=== PATIENT | male | born 2000 | race Caucasian/White ===

== ENCOUNTER 2020-05-20 15:26 | Outpatient (CLI) | payer OTHER, SELFPAY | END 2020-05-20 15:27 | disposition home or self-care (01) | PROVIDERS: PCP Pediatrics | DX: Z23 Encounter for immunization (principal) | CPT/HCPCS: 0001A; 91300 ==

== ENCOUNTER 2020-06-10 15:24 | Outpatient (CLI) | payer OTHER, SELFPAY | END 2020-06-10 15:25 | disposition home or self-care (01) | LOC: ANHCOVIDVC 15:25 | PROVIDERS: PCP Pediatrics | DX: Z23 Encounter for immunization (principal) | CPT/HCPCS: 0002A; 91300 ==

== ENCOUNTER 2021-04-23 15:55 | Emergency (ER) | payer OTHER, SELFPAY ==
[2021-04-23 16:06] VITALS: BP 126/75; PULSE 84; RESP 17; TEMP 36.7; O2SAT 99
--- NOTE | 2021-04-23 16:10 | ED.EAR ---
HPI - Ear Problem General Chief complaint: Ear Stated complaint: rt ear pain Time Seen by Provider: 04/23/21 16:10 Source: patient and RN notes reviewed Mode of arrival: ambulatory Limitations: no limitations History of Present Illness HPI Narrative: 21-year-old male presents to the [facility] with concerns of perforating his RIGHT eardrum. States he had ear pain for a couple of days. took a shower last night and though he had water in the ear then used a Q-tip. Had some bloody drainage on the Q-tip. After using a Q-tip, no longer had pain in the ear. Pain-free on exam. denies any headaches. No dizziness. Denies any loss of consciousness. Denies fevers. No nausea vomiting or diarrhea. MD Complaint: ear pain Location: right ear Related Data Allergies Allergy/AdvReac Type Severity Reaction Status Date / Time No Known Allergies Allergy Verified 04/23/21 16:12 Review of Systems Review of Systems: All systems reviewed & are unremarkable except as noted in HPI and below Constitutional: Constitutional: Reports no additional constitutional complaints, Denies chills and Denies fever(s) Eyes: Eyes: Reports no additional eye complaints ENT: Reports as per HPI, Denies change in voice, Denies dental pain, Denies vertigo, Denies dizziness, Denies nasal congestion and Denies throat swelling Comments: Ear pain Cardiovascular: Cardiovascular: Reports no additional cardiovascular complaints, Denies chest pain and Denies dyspnea Respiratory: Respiratory: Reports no additional respiratory complaints, Denies cough and Denies dyspnea Gastrointestinal: Gastrointestinal: Reports no additional gastrointestinal complaints, Denies abdominal pain, Denies nausea and Denies vomiting Musculoskeletal: Musculoskeletal: Reports no additional musculoskeletal complaints Integumentary/Breasts: Skin/Breast: Reports system reviewed and no additional complaints, except as docu Neurologic: Reports system reviewed and no additional complaints, except as documented, Denies vertigo and Denies dizziness Psychiatric: Psychiatric: Reports no additional psychiatric complaints Allergic/Immunologic: Allergic/Immunologic: Reports no additional allergic/immunologic complaints and Denies throat swelling PMFSH Past Medical History Medical History (Updated 04/23/21 @ 17:07 by Annette Lawton APRN) No significant medical problems Surgical History Surgical History (Updated 04/23/21 @ 17:07 by Annette Lawton APRN) No pertinent past surgical history Social History Social History (Updated 04/23/21 @ 17:08 by Annette Lawton APRN) Gender identity (if verbalized by the patient): Male Comments At the time of my signature, I reviewed and agree with the nursing past medical, surgical, social, and family history. There is no relevant family history pertinent to the patient complaint. Exam Const: General: healthy appearing, no acute distress and alert Nutritional Appearance: well nourished Orientation/consciousness: patient oriented x3 Limitations: no limitations HENMT: Head: normal to inspection Ears: external ears normal, TM normal on the left, EAC's normal, no periauricular adenopathy and TM abnormal erythematous on the right, with loss of landmarks and perforated with bloody discharge Outer ear/TM images: 1. Perforation noted General nose exam: Normal external nose present and Normal nasal mucous membranes and turbinates present Face and sinus: normal facial exam Mouth: Yes Normal oral and palatal mucosa present Throat: posterior oropharynx normal, tonsils normal and uvula midline Eyes: Conjunctivae: conjunctivae normal Pupils: Equal, round and reactive pupils present Neck: Neck: normal visual inspection, no lymphadenopathy and no meningeal signs Chest: Chest palpation & inspection: normal inspection of the chest Resp: Effort & Inspection: normal respiratory effort and no use of accessory muscles Auscultation: clear to auscultation bilater
== END 2021-04-23 16:22 | disposition home or self-care (01) ==
PROVIDERS: Emergency Provider Nurse Practitioner; PCP Internal Medicine
DX: H72.91 Unspecified perforation of tympanic membrane, right ear (principal); H66.90 Otitis media, unspecified, unspecified ear
CPT/HCPCS: 99213; G0463